=== PATIENT | male | born 1955 | race Caucasian/White ===

== ENCOUNTER → 2018-08-09 | Outpatient (CLI) | payer MEDICARE ==
[~2018-08-09] MED LIST: DOBUTamine DRIP for NUC MED 500 MG in DEXTROSE/WATER 1 250ML.BAG IV ONE
--- NOTE | 2018-08-09 11:13 | ECHOS ---
STRESS ECHOCARDIOGRAM INDICATIONS: Chest pain. BASELINE HEART RATE: 71 BASELINE BLOOD PRESSURE: 153/68 MAXIMUM HEART RATE: 133 MAXIMUM BLOOD PRESSURE: 230/55 85% MPHR: 132 100% MPHR: 155 MAXIMUM STAGE REACHED: 4 TOTAL EXERCISE TIME: 9:15 CLINICAL INFORMATION: Baseline heart rate is 71 beats per minute. Baseline blood pressure 153/68 mmHg. Baseline 12-lead ECG shows sinus rhythm with occasional PVCs. The patient received dobutamine infusion per protocol. Peak heart rate 133 beats per minute. Hypertensive response to dobutamine infusion. Peak blood pressure 230/55 mmHg. There was no ECG evidence for ischemia. Short runs of nonsustained ventricular tachycardia originating from the left ventricle were noted, asymptomatic. The baseline 2D echo image was suboptimal and therefore deferred contrast was used. Baseline 2D echo images showed normal LV size systolic function without segmental wall motion abnormalities. With dobutamine, there was stepwise increment in overall LV contractility without developing any wall motion abnormalities. At recovery, regional global LV systolic function remained normal. IMPRESSION: No ECG or echocardiographic evidence for ischemia, nonsustained ventricular tachycardia from the left ventricle during dobutamine infusion. No sustained ventricular tachycardia. Occasional premature ventricular contractions. MMODL / IJN: [id number] /
== END | disposition home or self-care (01) ==
LOC: RADNMMAIN 09:07
PROVIDERS: ATTEND Family Medicine
DX: I47.2 Ventricular tachycardia (principal)
CPT/HCPCS: C8930; J1250; 93351

== ENCOUNTER 2019-01-09 08:47 | Day surgery (SDC) | payer MEDICARE, BC ==
[2019-01-06 15:41] VITALS: BMI 34.9
[~2019-01-09 08:47] MED LIST changes: -DOBUTamine DRIP for NUC MED 500 MG in DEXTROSE/WATER 1 250ML.BAG IV ONE; +LACTATED RINGERS 1,000 ML IV SCH; +LIDOCAINE 1% 20 ML VIAL (10MG/ML) FOR IV START INTRADERMA PRN
[2019-01-09 09:14] VITALS: TEMP 97.9
[2019-01-09] MEDS ORDERED: KETAMINE 10 MG/ML 20 ML VIAL ONE (10:30)
[2019-01-09] MEDS ORDERED: PROPOFOL 10 MG/ML 20 ML VIAL IV ONE (10:30)
[2019-01-09] MEDS ORDERED: MIDAZOLAM 2 MG/2 ML VIAL ONE (10:30)
--- NOTE | 2019-01-09 11:03 | P.PCN ---
Date of Procedure: 01/09/19 Procedure(s) Performed: Procedure: Colonoscopy and biopsy. Preoperative diagnosis: Blood in the stools. Postoperative diagnosis: 1. Diminutive polyp in the proximal right colon biopsy but no large polyps or tumors. 2. Minimal diverticulosis with no evidence of acute diverticulitis or strictures. Preparation: HalfLytely prep. Sedation: Was provided by anesthesia. Brief clinical history: The patient is a 63-year-old male who is scheduled for this evaluation because of finding of blood in his stools. There is no overt bleeding or change in bowel habits or any significant abdominal symptoms. His last colonoscopy, March 2015 at the time of his upper endoscopy, was normal. His upper endoscopy then showed small sliding hiatal hernia and mild antral gastritis and the biopsies showed mild chronic esophagitis. This evaluation is to rule out neoplasia. Procedure: With the patient on his left lateral decubitus position and after informed consent and adequate sedation, the perianal area was inspected and it did not show any fissures or fistulas. There were no masses felt on digital rectal examination. The Olympus CFH 190L video colonoscope was then inserted in the rectum in the usual fashion and advanced to the cecum. There was a diminutive polyp in the proximal right colon which I biopsied and there was a rare small diverticular orifices seen around the hepatic flexure and in the sigmoid with no evidence of acute diverticulitis or strictures. The mucosa appeared healthy. I retroflexed the endoscope in the rectum before the endoscope was withdrawn. The patient tolerated the procedure well. Plan: The patient was reassured. Discussed dietary measures. He will follow up with you as planned and I recommended repeat exam in 5 years. No additional workup for his blood in the stools is recommended at this time in the absence of upper GI complaints or anemia. He will discuss that with you.
[2019-01-09 11:14] VITALS: BP 130/78; PULSE 78; RESP 18
== END 2019-01-09 11:57 | disposition home or self-care (01) ==
LOC: ORWHC2ENDO 08:47
DX: K63.5 Polyp of colon (principal); K57.30 Diverticulosis of large intestine without perforation or abscess without bleeding; I10 Essential (primary) hypertension; J44.9 Chronic obstructive pulmonary disease, unspecified; K21.9 Gastro-esophageal reflux disease without esophagitis; G47.33 Obstructive sleep apnea (adult) (pediatric); M19.90 Unspecified osteoarthritis, unspecified site; Z79.899 Other long term (current) drug therapy; Z79.51 Long term (current) use of inhaled steroids; Z87.442 Personal history of urinary calculi; Z85.828 Personal history of other malignant neoplasm of skin; Z90.11 Acquired absence of right breast and nipple
CPT/HCPCS: 88305; 45380; J2250; J2704

== ENCOUNTER → 2019-05-02 | Outpatient (CLI) | payer MEDICARE, BC | END | disposition home or self-care (01) | LOC: RADMRIMAIN 12:53 | PROVIDERS: ATTEND Nurse Practitioner Family | DX: Z53.9 Procedure and treatment not carried out, unspecified reason (principal) ==

== ENCOUNTER 2019-05-07 | Inpatient (IN) | payer MEDICARE, BC ==
[2019-05-07 00:18] LABS: Glucose,Whole Blood 142 mg/dL (75-99)
--- NOTE | 2019-05-07 00:54 | ED ---
Dizziness HPI - General Chief Complaint: Dizziness Stated Complaint: light headed Time Seen by Provider: 05/07/19 00:42 Source: patient Mode of arrival: ambulatory - History of Present Illness Complaint: lightheadedness Onset/Timin -: hour(s) Timing: gradual onset Description: "room spinning", lightheadedness History of Same: Yes Severity: mild Improves With: nothing Worsens With: nothing Associated Symptoms: diaphoresis - Related Data Home Medications Medication Instructions Recorded Confirmed Enalapril [Vasotec] 10 mg PO QAM 04/15/15 01/09/19 Sucralfate 1 gm PO BID 07/06/15 01/09/19 Digestive Enzyme 1 tab PO DAILY 04/14/16 01/09/19 Mometasone/Formoterol [Dulera 200 2 puff INHALATION BID PRN 04/14/16 01/09/19 Mcg/5 Mcg Inhaler] Pantoprazole [Protonix] 40 mg PO DAILY 01/06/19 01/09/19 Allergies Allergy/AdvReac Type Severity Reaction Status Date / Time No Known Allergies Allergy Verified 04/20/16 13:02 Review of Systems ROS Statement: Those systems with pertinent positive or pertinent negative responses have been documented in the HPI. ROS Other: All systems not noted in ROS Statement are negative. Constitutional: Denies: fever, chills, weakness Respiratory: Reports: dyspnea. Denies: cough Cardiovascular: Reports: palpitations, syncope (Near syncope). Denies: chest pain, orthopnea, edema Gastrointestinal: Denies: abdominal pain, nausea, vomiting Genitourinary: Denies: dysuria, hematuria Musculoskeletal: Denies: back pain Skin: Denies: rash Neurological: Denies: headache, weakness, numbness, paresthesias Past Medical History Past Medical History: Cancer, GERD/Reflux, Hypertension, Osteoarthritis (OA), Respiratory Disorder, Sleep Apnea/CPAP/BIPAP Additional Past Medical History / Comment(s): Silicosis of Lungs. Hx Ulcers IN ESOPHAGUS, STOMACH. Fatty Liver. Skin CA Back/SHOULDERS/NECK. Kidney stones. NOCTURIA. SLEEP STUDY INCONCLUSIVE D/T CLAUSTROPHOBIA., PT STATES EGD RESCHEDULED BY , DENIES CHANGES TO HEALTH HX OR MEDICATIONS. History of Any Multi-Drug Resistant Organisms: None Reported Past Surgical History: Breast Surgery, Cholecystectomy, Ear Surgery, Tonsillectomy Additional Past Surgical History / Comment(s): EAR SKIN GRAFT. EGD ON 04/19/15. Rt mastectomy, Lt lumpectomy - BENIGN. COLONOSCOPY. Past Anesthesia/Blood Transfusion Reactions: Motion Sickness, Postoperative Nausea & Vomiting (PONV) Additional Past Anesthesia/Blood Transfusion Reaction / Comment(s): Pt SLOW TO AWAKEN. Past Psychological History: Anxiety Smoking Status: Never smoker Past Alcohol Use History: Rare Past Drug Use History: None Reported - Past Family History Father Family Medical History: Myocardial Infarction ([place]) Brother(s) Family Medical History: Cancer Additional Family Medical History / Comment(s): parkinsons Sister(s) Family Medical History: Diabetes Mellitus General Exam General appearance: alert Head exam: Present: atraumatic, normocephalic Eye exam: Present: normal appearance. Absent: scleral icterus, conjunctival injection Respiratory exam: Present: normal lung sounds bilaterally. Absent: respiratory distress, wheezes, rales, rhonchi, stridor Cardiovascular Exam: Present: regular rate, normal rhythm, normal heart sounds. Absent: systolic murmur, diastolic murmur, rubs, gallop GI/Abdominal exam: Present: soft. Absent: distended, tenderness, guarding, rebound, rigid Extremities exam: Present: normal inspection, normal capillary refill. Absent: pedal edema, calf tenderness Back exam: Present: normal inspection. Absent: CVA tenderness (R), CVA tenderness (L) Neurological exam: Present: alert Skin exam: Present: warm, dry, intact, normal color. Absent: rash Course Vital Signs 05/07/19 05/07/19 05/07/19 00:06 01:42 02:28 Pulse Rate 94 81 82 Respiratory 18 16 18 Rate Blood Pressure 103/58 117/67 118/62 O2 Sat by Pulse 98 98 97 Oximetry EKG Findings - EKG Results: EKG: interpreted by ERMD, sinus rhythm (Rate 92 bpm), normal ST/T - Blocks, [place], Hypertrophy, ST Abn: AV and intraventricular conduction: left anterior fascicular block Chamber hypertrophy or enlargement: only voltage criteria for left ventricular hypertrophy Medical Decision Making - Lab Data Result diagrams: 05/07/19 00:47 05/07/19 00:47 Lab Results 05/07/19 05/07/19 05/07/19 Range/Units 00:15 00:47 00:47 WBC 15.7 H (3.8-10.6) k/uL RBC 4.81 (4.30-5.90) m/uL Hgb 14.4 (13.0-17.5) gm/dL Hct 41.8 (39.0-53.0) % MCV 87.0 (80.0-100.0) fL MCH 30.0 (25.0-35.0) pg MCHC 34.5 (31.0-37.0) g/dL RDW 13.7 (11.5-15.5) % Plt Count 305 (150-450) k/uL Neutrophils % 77 % Lymphocytes % 13 % Monocytes % 8 % Eosinophils % 1 % Basophils % 0 % Neutrophils # 12.0 H (1.3-7.7) k/uL Lymphocytes # 2.0 (1.0-4.8) k/uL Monocytes # 1.2 H (0-1.0) k/uL Eosinophils # 0.1 (0-0.7) k/uL Basophils # 0.1 (0-0.2) k/uL Sodium 138 (137-145) mmol/L Potassium 4.4 (3.5-5.1) mmol/L Chloride 101 (98-107) mmol/L Carbon Dioxide 23 (22-30) mmol/L Anion Gap 14 mmol/L BUN 41 H (9-20) mg/dL Creatinine 2.54 H (0.66-1.25) mg/dL Est GFR (CKD-EPI)AfAm 29 (>60 ml/min/1.73 sqM) Est GFR (CKD-EPI)NonAf 26 (>60 ml/min/1.73 sqM) Glucose 132 H (74-99) mg/dL POC Glucose (mg/dL) 142 H (75-99) mg/dL POC Glu Payroll Secretary ID Home, [place] Plasma Lactic Acid Adi (0.7-2.0) mmol/L Calcium 10.3 H (8.4-10.2) mg/dL Total Bilirubin 0.6 (0.2-1.3) mg/dL AST 23 (17-59) U/L ALT 21 (21-72) U/L Alkaline Phosphatase 104 (38-126) U/L Troponin I (0.000-0.034) ng/mL Total Protein 7.9 (6.3-8.2) g/dL Albumin 4.6 (3.5-5.0) g/dL Urine Color Urine Appearance (Clear) Urine pH (5.0-8.0) Ur Specific [place] (1.001-1.035) Urine Protein (Negative) Urine Glucose (UA) (Negative) Urine Ketones (Negative) Urine Blood (Negative) Urine Nitrite (Negative) Urine Bilirubin (Negative) Urine Urobilinogen (<2.0) mg/dL Ur Leukocyte Esterase (Negative) Urine RBC (0-5) /hpf Ur Squamous Epith Cells (0-4) /hpf Hyaline Casts (0-2) /lpf Urine Mucus (None) /hpf 05/07/19 05/07/19 05/07/19 Range/Units 00:47 00:47 02:10 WBC (3.8-10.6) k/uL RBC (4.30-5.90) m/uL Hgb (13.0-17.5) gm/dL Hct (39.0-53.0) % MCV (80.0-100.0) fL MCH (25.0-35.0) pg MCHC (31.0-37.0) g/dL RDW (11.5-15.5) % Plt Count (150-450) k/uL Neutrophils % % Lymphocytes % % Monocytes % % Eosinophils % % Basophils % % Neutrophils # (1.3-7.7) k/uL Lymphocytes # (1.0-4.8) k/uL Monocytes # (0-1.0) k/uL Eosinophils # (0-0.7) k/uL Basophils # (0-0.2) k/uL Sodium (137-145) mmol/L Potassium (3.5-5.1) mmol/L Chloride (98-107) mmol/L Carbon Dioxide (22-30) mmol/L Anion Gap mmol/L BUN (9-20) mg/dL Creatinine (0.66-1.25) mg/dL Est GFR (CKD-EPI)AfAm (>60 ml/min/1.73 sqM) Est GFR (CKD-EPI)NonAf (>60 ml/min/1.73 sqM) Glucose (74-99) mg/dL POC Glucose (mg/dL) (75-99) mg/dL POC Glu Payroll Secretary ID Plasma Lactic Acid Adi 2.1 H* (0.7-2.0) mmol/L Calcium (8.4-10.2) mg/dL Total Bilirubin (0.2-1.3) mg/dL AST (17-59) U/L ALT (21-72) U/L Alkaline Phosphatase (38-126) U/L Troponin I <0.012 (0.000-0.034) ng/mL Total Protein (6.3-8.2) g/dL Albumin (3.5-5.0) g/dL Urine Color Yellow Urine Appearance Cloudy (Clear) Urine pH 5.5 (5.0-8.0) Ur Specific [place] 1.016 (1.001-1.035) Urine Protein 1+ H (Negative) Urine Glucose (UA) Negative (Negative) Urine Ketones Negative (Negative) Urine Blood Negative (Negative) Urine Nitrite Negative (Negative) Urine Bilirubin Negative (Negative) Urine Urobilinogen 2.0 (<2.0) mg/dL Ur Leukocyte Esterase Trace H (Negative) Urine RBC 1 (0-5) /hpf Ur Squamous Epith Cells 2 (0-4) /hpf Hyaline Casts 59 H (0-2) /lpf Urine Mucus Moderate H (None) /hpf Disposition Clinical Impression: Near syncope, Acute kidney injury Disposition: ADMITTED IP TO THIS HOSP Condition: Fair Is patient prescribed a controlled substance at d/c from ED?: No Referrals: Lionel Wagner MD [Primary Care Provider] - 1-2 days
[2019-05-07 00:59] LABS: Basophils # (A) 0.1 k/uL (0-0.2); Basophils % (A) 0 %; Eosinophils # (A) 0.1 k/uL (0-0.7); Eosinophils % (A) 1 %; HCT 41.8 % (39.0-53.0); HGB 14.4 gm/dL (13.0-17.5); Lymphocytes % (A) 13 %; MCHC 34.5 g/dL (31.0-37.0); Mean Platelet Volume 8.3; Monocytes # (A) 1.2 k/uL (0-1.0); Monocytes % (A) 8 %; Neutrophils % (A) 77 %; Platelet Count 305 k/uL (150-450); RBC 4.81 m/uL (4.30-5.90); RDW 13.7 % (11.5-15.5); WBC 15.7 k/uL (3.8-10.6)
[2019-05-07 01:08] LABS: Albumin 4.6 g/dL (3.5-5.0); Calcium 10.3 mg/dL (8.4-10.2); Potassium 4.4 mmol/L (3.5-5.1); Total Bilirubin 0.6 mg/dL (0.2-1.3); Total Protein 7.9 g/dL (6.3-8.2)
[2019-05-07] MEDS ORDERED: SODIUM CHLORIDE 0.9% 1,000 ML IV ONE (01:13)
--- NOTE | 2019-05-07 01:24 | XR ---
EXAM: XR Chest, 1 View CLINICAL HISTORY: ITS.REASON XR Reason: lightheadedness TECHNIQUE: Frontal view of the chest. COMPARISON: 02/21/19 and 07/05/15. FINDINGS: Lungs: There is redemonstrated pulmonary hyperinflation suggesting emphysema. Chronic upper lobe-predominant reticulonodular infiltrates again noted, similar to prior exam back to 2014. No clear acute consolidation Pleural space: Unremarkable. No pneumothorax. Heart: Unremarkable. No cardiomegaly. Mediastinum: Aortic calcification. Bones/joints: Unremarkable. IMPRESSION: Redemonstrated pulmonary hyperexpansion and chronic reticulonodular infiltrates. No clear acute consolidation.
[2019-05-07 02:30] LABS: Appearance,Urine Cloudy (Clear); Bilirubin,Urine Negative (Negative); Blood,Urine Negative (Negative); Color,Urine Yellow; Glucose,Urine (UA) Negative (Negative); Hyaline Casts,Urine 59 /lpf (0-2); Ketones,Urine Negative (Negative); Leukocyte Esterase,Urine Trace (Negative); Mucus,Urine Moderate /hpf; Nitrite,Urine Negative (Negative); PH, Urine 5.5 (5.0-8.0); Protein,Urine 1+ (Negative); RBC,Urine 1 /hpf (0-5); Specific Gravity,Urine 1.016 (1.001-1.035); Squamous Epithelial Cell,Urine 2 /hpf (0-4)
[2019-05-07] MEDS ORDERED: NALOXONE 0.4 MG/ML 1 ML VIAL IV PRN (02:47)
[2019-05-07] MEDS ORDERED: SODIUM CHLORIDE 0.9% 1,100 ML IV ONE (02:49)
[2019-05-07] MEDS ORDERED: MAG HYDROX/AL HYDROX/SIMETH 30 ML CUP PO STA (03:46)
[2019-05-07] MEDS: SODIUM CHLORIDE 0.9% 1,000 ML IV SCH ×2 (04:28→16:20)
[2019-05-07] MEDS ORDERED: SUCRALFATE 1 GM TAB PO SCH (09:00)
[2019-05-07] MEDS ORDERED: LISINOPRIL 20 MG TAB PO SCH (09:00)
[2019-05-07] MEDS: PANTOPRAZOLE 40 MG TABLET PO SCH (09:12)
[2019-05-07] MEDS ORDERED: TAMSULOSIN 0.4 MG CAP.ER.24H PO SCH (10:45)
[2019-05-07] MEDS ORDERED: hydrALAZINE HCL 20 MG/ML 1 ML VIAL IVP PRN (10:47)
--- NOTE | 2019-05-07 11:21 | P.NPCON ---
History of Present Illness - Reason for Consult acute renal failure - History of Present Illness Reason for consultation: Acute kidney injury History of present illness: Patient is a 63-year-old male seen in consultation for acute kidney injury. Patient's creatinine in 2014 was 0.8. No other records are available. Patient denies any prior history of kidney disease and he does not follow with a nephro logist outpatient. Patient states he felt dizzy yesterday which progressively got worse over the day. Patient states he was unable to even stand and decided to come to the hospital. Patient was noted to be hypotensive with blood pressure in the low 100s on admission. He does take diuretics and lisinopril at home. Additionally he admits to taking Aleve on a daily basis in the morning. He admits to good urine output. No hematuria or dysuria. No history of diabetes. Denies family history of renal disease. No vomiting or diarrhea. Oral intake has been fair. Denies chest pain or shortness of breath. He denies losing consciousness. Vital signs are stable. General: The patient appeared well nourished and normally developed. HEENT: Head exam is unremarkable. Neck is without jugular venous distension. LUNGS: Lungs are clear to auscultation and percussion. Breath sounds decreased. HEART: Rate and Rhythm are regular. First and second heart sounds normal. No murmurs, rubs or gallops. ABDOMEN: Abdominal exam reveals normal bowel sounds. Non-tender and non- distended. No evidence of peritonitis. EXTREMITITES: No clubbing, cyanosis, or edema. Past Medical History Past Medical History: Cancer, GERD/Reflux, Hypertension, Osteoarthritis (OA), Respiratory Disorder, Sleep Apnea/CPAP/BIPAP Additional Past Medical History / Comment(s): Silicosis of Lungs. Hx Ulcers IN ESOPHAGUS, STOMACH. Fatty Liver. Skin CA Back/SHOULDERS/NECK. Kidney stones. NOCTURIA. SLEEP STUDY INCONCLUSIVE D/T CLAUSTROPHOBIA., PT STATES EGD RESCHEDULED BY DR, DENIES CHANGES TO HEALTH HX OR MEDICATIONS. History of Any Multi-Drug Resistant Organisms: None Reported Past Surgical History: Breast Surgery, Cholecystectomy, Ear Surgery, Tonsillectomy Additional Past Surgical History / Comment(s): EAR SKIN GRAFT. EGD ON 04/19/15. Rt mastectomy, Lt lumpectomy - BENIGN. COLONOSCOPY. Past Anesthesia/Blood Transfusion Reactions: Motion Sickness, Postoperative Nausea & Vomiting (PONV) Additional Past Anesthesia/Blood Transfusion Reaction / Comment(s): Pt SLOW TO AWAKEN. Past Psychological History: Anxiety Additional Psychological History / Comment(s): CLAUSTROPHOBIC Smoking Status: Never smoker Past Alcohol Use History: Rare Past Drug Use History: None Reported - Past Family History Father Family Medical History: Myocardial Infarction ([place]) Brother(s) Family Medical History: Cancer Additional Family Medical History / Comment(s): parkinsons Sister(s) Family Medical History: Diabetes Mellitus Medications and Allergies Home Medications Medication Instructions Recorded Confirmed Type Sucralfate 1 gm PO QID 07/06/15 05/07/19 History Digestive Enzyme 1 tab PO DAILY 04/14/16 05/07/19 History Mometasone/Formoterol [Dulera 200 2 puff INHALATION RT-BID PRN 04/14/16 05/07/19 History Mcg/5 Mcg Inhaler] Pantoprazole [Protonix] 40 mg PO DAILY 01/06/19 05/07/19 History Albuterol Sulfate [Proair Hfa] 1 - 2 puff INHALATION RT-Q4H PRN 05/07/19 05/07/19 History Enalapril [Vasotec] 20 mg PO DAILY 05/07/19 05/07/19 History Ibuprofen [Motrin] 800 mg PO TID PRN 05/07/19 05/07/19 History Tamsulosin [Flomax] 0.8 mg PO DAILY 05/07/19 05/07/19 History Triamterene/Hydrochlorothiazid 1 tab PO DAILY 05/07/19 05/07/19 History [Triamterene-Hctz 37.5-25 mg Tb] Allergies Allergy/AdvReac Type Severity Reaction Status Date / Time No Known Allergies Allergy Verified 05/07/19 07:20 Physical Exam Vitals: Vital Signs Temp Pulse Pulse Pulse Resp BP BP 05/07/19 07:35 98.5 F 78 16 108/51 05/07/19 07:15 16 05/07/19 06:55 97.8 F 82 21 05/07/19 03:30 98 F 76 18 113/68 05/07/19 02:28 82 18 118/62 05/07/19 01:42 81 16 117/67 05/07/19 00:06 94 18 103/58 BP Pulse Ox 05/07/19 07:35 95 05/07/19 07:15 05/07/19 06:55 111/64 95 05/07/19 03:30 96 05/07/19 02:28 97 05/07/19 01:42 98 05/07/19 00:06 98 Intake and Output 05/06/19 05/07/19 05/07/19 22:59 06:59 14:59 Intake Total 10 300 Balance 10 300 Intake: Oral 10 300 Other: Weight 104.78 kg Results - Lab Results Most recent lab results Calcium 10.3 mg/dL (8.4-10.2) H 05/07/19 00:47 05/07/19 00:47 05/07/19 00:47 Assessment and Plan Plan: Assessment: 1. Acute kidney injury mostly prerenal secondary to hypotension, nonsteroidals and diuretics. Creatinine 2.54 on admission. Creatinine was 0.8 and 2015. 2. Lactic acidosis secondary to hypotension improved with IV hydration. Patient received 2 L normal saline bolus in the ER. 3. Benign hypertension. Controlled. 4. Near syncopal episode secondary to intravascular volume depletion. 5. Pyuria. Follow-up urine culture. Plan: Maintain normal saline at 75 mL an hour. Check orthostatic vital signs. Hold all antihypertensives. Check renal ultrasound. Repeat electrolytes in the morning. Thank you for the consultation. I will continue to follow the patient with you during his hospital stay.
[2019-05-07] MEDS ORDERED: ACETAMINOPHEN TAB 325 MG TAB PO PRN (13:28)
--- NOTE | 2019-05-07 14:49 | US ---
EXAMINATION TYPE: US kidneys/renal and bladder DATE OF EXAM: 05/07/2019 COMPARISON: NONE CLINICAL HISTORY: phi. Dehydration PHI EXAM MEASUREMENTS: Right Kidney: 13.5 x 6.2 x 4.9 cm Left Kidney: 12.1 x 5.8 x 5.1 cm Right Kidney: No hydronephrosis or masses seen Left Kidney: No hydronephrosis or masses seen Bladder: Anechoic Bilateral Jets seen: Yes IMPRESSION: 1. Normal renal ultrasound
--- NOTE | 2019-05-07 16:15 | P.HPIM ---
History of Present Illness H&P Date: 05/07/19 Chief Complaint: Disease lightheaded History of presenting complaint: This is a pleasant 63-year-old patient of Dr. Lionel Wagner. Chronic stable medical conditions include GERD, hypertension, osteoarthritis, silicosis of the lung, fatty liver, kidney stone, and history of ulcer in the stomach and esophagus. Patient presents with multitudinous symptoms including dizzy per spiration lightheaded. Started yesterday. Had another bout of heavy's perspiration yesterday. No chest pain slight headache. Had 2 loose bowel movements yesterday that was loose no obvious fever and chills. Does tired and rundown. Review of systems: GEN.: Tired, perspiring, lightheaded EYES: None HEENT: Slight frontal headache NECK: None RESPIRATORY: None CARDIOVASCULAR: None GASTROINTESTINAL: No abdominal pain GENITOURINARY: None MUSCULOSKELETAL: None LYMPHATICS: None HEMATOLOGICAL: None PSYCHIATRY: None NEUROLOGICAL: None Social history: Does not smoke. Alcohol rarely. Currently on disability. Used to work in [employer]. . Physical examination: VITAL SIGNS: Afebrile, 94, 18, 103/58, 98% room air GENERAL: BMI 35.1, sitting at the edge of the bed, tired appearing slight perspiration. EYES: Pupils equal. Conjunctiva normal. HEENT: External appearance of nose and ears normal, oral cavity grossly normal. NECK: JVD not raised; masses not palpable. HEART: First and second heart sounds are normal; no edema. LUNGS: Respiratory rate normal; clear to auscultation. ABDOMEN: Soft, nontender, liver spleen not palpable, no masses palpable. PSYCH: Alert and oriented x3; mood and affect normal. NEUROLOGICAL: Cranial nerves grossly intact; no facial asymmetry, power and sensation grossly intact. LYMPHATICS: No lymph nodes palpable in the axilla and neck Investigations: White count 15.7 hemoglobin 40.4 potassium 4.4 bun 41 creatinine 2.54 lactic a tianna 2.1 EKG tracing personally reviewed by me shows normal sinus rhythm Chest x-ray film personally reviewed by me the film is rather underpenetrated. X-ray report reads pulmonary hyperexpansion and chronic medical nodular infiltrates Assessment: -This is a patient presents with episodes/symptoms, biting of dizzy lightheaded perspiration weak tired slight headache. No fever no chills. This could be from his underlying renal failure that could be acute -Possibly acute renal failure, type unknown. Renal offensive medications: Include patient being on Motrin, Vasotec and diuretics. That could be combination of ATN and prerenal. -Obesity BMI 35.1 -GERD -Essential hypertension -Primary osteoarthritis -Operative sleep apnea -Silicosis of the lungs -Fatty liver -Nephrolithiasis Plan: Renal offensive medications including diuretics and ISABELLE inhibitor NSAIDs will all be discontinued. Patient will get IV fluids. Renal ultrasound will be done. Nephrology was consulted. Care was discussed with the patient. Lovenox for DVT Profore prophylaxis. Past Medical History Past Medical History: Cancer, GERD/Reflux, Hypertension, Osteoarthritis (OA), Respiratory Disorder, Sleep Apnea/CPAP/BIPAP Additional Past Medical History / Comment(s): Silicosis of Lungs. Hx Ulcers IN ESOPHAGUS, STOMACH. Fatty Liver. Skin CA Back/SHOULDERS/NECK. Kidney stones. NOCTURIA. SLEEP STUDY INCONCLUSIVE D/T CLAUSTROPHOBIA., PT STATES EGD R ESCHEDULED BY , DENIES CHANGES TO HEALTH HX OR MEDICATIONS. History of Any Multi-Drug Resistant Organisms: None Reported Past Surgical History: Breast Surgery, Cholecystectomy, Ear Surgery, Tonsillectomy Additional Past Surgical History / Comment(s): EAR SKIN GRAFT. EGD ON 04/19/15. Rt mastectomy, Lt lumpectomy - BENIGN. COLONOSCOPY. Past Anesthesia/Blood Transfusion Reactions: Motion Sickness, Postoperative Nausea & Vomiting (PONV) Additional Past Anesthesia/Blood Transfusion Reaction / Comment(s): Pt SLOW TO AWAKEN. Past Psychological History: Anxiety Additional Psychological History / Comment(s): CLAUSTROPHOBIC Smoking Status: Never smoker Past Alcohol Use History: Rare Past Drug Use History: None Reported - Past Family History Father Family Medical History: Myocardial Infarction (SD) Brother(s) Family Medical History: Cancer Additional Family Medical History / Comment(s): parkinsons Sister(s) Family Medical History: Diabetes Mellitus Medications and Allergies Home Medications Medication Instructions Recorded Confirmed Type Sucralfate 1 gm PO QID 07/06/15 05/07/19 History Digestive Enzyme 1 tab PO DAILY 04/14/16 05/07/19 History Mometasone/Formoterol [Dulera 200 2 puff INHALATION RT-BID PRN 04/14/16 05/07/19 History Mcg/5 Mcg Inhaler] Pantoprazole [Protonix] 40 mg PO DAILY 01/06/19 05/07/19 History Albuterol Sulfate [Proair Hfa] 1 - 2 puff INHALATION RT-Q4H PRN 05/07/19 05/07/19 History Enalapril [Vasotec] 20 mg PO DAILY 05/07/19 05/07/19 History Ibuprofen [Motrin] 800 mg PO TID PRN 05/07/19 05/07/19 History Tamsulosin [Flomax] 0.8 mg PO DAILY 05/07/19 05/07/19 History Triamterene/Hydrochlorothiazid 1 tab PO DAILY 05/07/19 05/07/19 History [Triamterene-Hctz 37.5-25 mg Tb] Allergies Allergy/AdvReac Type Severity Reaction Status Date / Time No Known Allergies Allergy Verified 05/07/19 07:20 Physical Exam Vitals: Vital Signs Temp Pulse Pulse Pulse Resp BP BP 05/07/19 15:03 97.9 F 79 16 131/71 05/07/19 11:09 66 82 21 05/07/19 07:35 98.5 F 78 16 108/51 05/07/19 07:15 16 05/07/19 06:55 97.8 F 82 21 05/07/19 03:30 98 F 76 18 113/68 05/07/19 02:28 82 18 118/62 05/07/19 01:42 81 16 117/67 05/07/19 00:06 94 18 103/58 BP Pulse Ox 05/07/19 15:03 95 05/07/19 11:09 05/07/19 07:35 95 05/07/19 07:15 05/07/19 06:55 111/64 95 05/07/19 03:30 96 05/07/19 02:28 97 05/07/19 01:42 98 05/07/19 00:06 98 Intake and Output 05/07/19 05/07/19 05/07/19 06:59 14:59 22:59 Intake Total 10 1425 Balance 10 1425 Intake: Intake, IV Titration 525 Amount Sodium Chloride 0.9% 1, 525 000 ml @ 75 mls/hr IV . [id number] [facility] Rx#:[id number] Oral 10 900 Other: Voiding Method Toilet # Voids 2 Weight 104.78 kg Results CBC & Chem 7: 05/07/19 00:47 05/07/19 00:47 Labs: Abnormal Lab Results - Last 24 Hours (Table) 05/07/19 05/07/19 05/07/19 Range/Units 00:15 00:47 00:47 WBC 15.7 H (3.8-10.6) k/uL Neutrophils # 12.0 H (1.3-7.7) k/uL Monocytes # 1.2 H (0-1.0) k/uL BUN 41 H (9-20) mg/dL Creatinine 2.54 H (0.66-1.25) mg/dL Glucose 132 H (74-99) mg/dL POC Glucose (mg/dL) 142 H (75-99) mg/dL Plasma Lactic Acid Adi (0.7-2.0) mmol/L Calcium 10.3 H (8.4-10.2) mg/dL Urine Protein (Negative) Ur Leukocyte Esterase (Negative) Urine WBC (0-5) /hpf Hyaline Casts (0-2) /lpf Urine Mucus (None) /hpf 05/07/19 05/07/19 Range/Units 00:47 02:10 WBC (3.8-10.6) k/uL Neutrophils # (1.3-7.7) k/uL Monocytes # (0-1.0) k/uL BUN (9-20) mg/dL Creatinine (0.66-1.25) mg/dL Glucose (74-99) mg/dL POC Glucose (mg/dL) (75-99) mg/dL Plasma Lactic Acid Adi 2.1 H* (0.7-2.0) mmol/L Calcium (8.4-10.2) mg/dL Urine Protein 1+ H (Negative) Ur Leukocyte Esterase Trace H (Negative) Urine WBC 13 H (0-5) /hpf Hyaline Casts 59 H (0-2) /lpf Urine Mucus Moderate H (None) /hpf Microbiology - Last 24 Hours (Table) 05/07/19 02:10 Urine Culture - Preliminary Urine,Voided Thrombosis Risk Factor Assmnt - Choose All That Apply Any of the Below Risk Factors Present?: Yes Each Factor Represents 1 point: Obesity (BMI >25) Other Risk Factors: Yes Each Risk Factor Represents 2 Points: Age 61-74 years Thrombosis Risk Factor Assessment Total Risk Factor Score: 3 Thrombosis Risk Factor Assessment Level: Moderate Risk
[2019-05-07] MEDS: SODIUM CHLORIDE 0.45% 1,000 ML IV SCH (16:24)
[2019-05-07] MEDS: ENOXAPARIN 40 MG/0.4 ML SYRINGE SQ SCH (16:25)
[2019-05-07] MEDS: SYMBICORT 160-4.5 MCG INHALER INHALATION PRN (19:56)
[2019-05-08] MEDS: SODIUM CHLORIDE 0.45% 1,000 ML IV SCH ×2 (01:29→07:35)
[2019-05-08] MEDS: SYMBICORT 160-4.5 MCG INHALER INHALATION PRN (07:16)
[2019-05-08 07:25] LABS: Calcium 9.4 mg/dL (8.4-10.2); Magnesium 1.7 mg/dL (1.6-2.3); Potassium 4.3 mmol/L (3.5-5.1)
[2019-05-08] MEDS: PANTOPRAZOLE 40 MG TABLET PO SCH (07:37)
[2019-05-08] MEDS: ENOXAPARIN 40 MG/0.4 ML SYRINGE SQ SCH (07:37)
[2019-05-08 07:41] VITALS: BP 170/70; PULSE 74; RESP 17; TEMP 98.1
[2019-05-08] MEDS ORDERED: TAMSULOSIN 0.4 MG CAP.ER.24H PO SCH (08:30)
--- NOTE | 2019-05-08 10:09 | P.PN ---
Subjective Patient is seen in follow-up for acute kidney injury. Creatinine was 2.54 on admission and is 1.09 today. Oral intake is good. Hypotension has resolved. Blood pressures are actually on the higher side this morning. No nausea or vomiting. Vital signs are stable. General: The patient appeared well nourished and normally developed. HEENT: Head exam is unremarkable. Neck is without jugular venous distension. LUNGS: Lungs are clear to auscultation and percussion. Breath sounds decreased. HEART: Rate and Rhythm are regular. First and second heart sounds normal. No murmurs, rubs or gallops. ABDOMEN: Abdominal exam reveals normal bowel sounds. Non-tender and non- distended. No evidence of peritonitis. EXTREMITITES: No clubbing, cyanosis, or edema. Objective - Vital Signs Vital signs: Vital Signs Temp 98.1 F 05/08/19 07:00 Pulse 74 05/08/19 07:00 Resp 17 05/08/19 07:00 BP 170/70 05/08/19 07:00 Pulse Ox 96 05/08/19 07:18 Intake & Output 05/07/19 05/08/19 05/08/19 18:59 06:59 18:59 Intake Total 1725 1125 180 Balance 1725 1125 180 Intake: Intake, IV Titration 525 1125 Amount Sodium Chloride 0.45% 1, 1125 000 ml @ 125 mls/hr IV . Q8H [facility] Rx#:[id number] Sodium Chloride 0.9% 1, 525 000 ml @ 75 mls/hr IV . [id number] [facility] Rx#:[id number] Oral 1200 180 Other: Voiding Method Toilet # Voids 2 1 - Labs CBC & Chem 7: 05/07/19 00:47 05/08/19 06:38 Labs: Abnormal Lab Results - Last 24 Hours (Table) 05/08/19 Range/Units 06:38 BUN 21 H (9-20) mg/dL Microbiology - Last 24 Hours (Table) 05/07/19 02:10 Urine Culture - Preliminary Urine,Voided Assessment and Plan Plan: Assessment: 1. Acute kidney injury mostly prerenal secondary to hypotension, nonsteroidals and diuretics. Creatinine 2.54 on admission and is down to 1.09 today. Creatinine was 0.8 and 2015. 2. Lactic acidosis secondary to hypotension improved with IV hydration. Patient received 2 L normal saline bolus in the ER. 3. Benign hypertension. Blood pressure high this morning. 4. Near syncopal episode secondary to intravascular volume depletion. 5. Pyuria. Follow-up urine culture. Plan: Hep-Lock IV fluids. Start amlodipine 5 mg once daily.
[2019-05-08] MEDS ORDERED: amLODIPine 5 MG TAB PO SCH (10:15)
== END 2019-05-08 13:27 | disposition home or self-care (01) | DRG 683 ==
LOC: EC → 4SSUR 02:47
PROVIDERS: ADMIT Hospitalist; ATTEND Hospitalist
DX: N17.9 Acute kidney failure, unspecified (principal); E87.2 Acidosis; I95.9 Hypotension, unspecified; K76.0 Fatty (change of) liver, not elsewhere classified; E66.9 Obesity, unspecified; E86.9 Volume depletion, unspecified; F40.240 Claustrophobia; G47.33 Obstructive sleep apnea (adult) (pediatric); I10 Essential (primary) hypertension; K21.9 Gastro-esophageal reflux disease without esophagitis; M19.91 Primary osteoarthritis, unspecified site; R55 Syncope and collapse; F41.9 Anxiety disorder, unspecified; J62.8 Pneumoconiosis due to other dust containing silica; T39.315A Adverse effect of propionic acid derivatives, initial encounter; T46.4X5A Adverse effect of angiotensin-converting-enzyme inhibitors, initial encounter; T50.2X5A Adverse effect of carbonic-anhydrase inhibitors, benzothiadiazides and other diuretics, initial encounter; Z68.35 Body mass index [BMI] 35.0-35.9, adult; Z79.51 Long term (current) use of inhaled steroids; Z79.899 Other long term (current) drug therapy; Z90.11 Acquired absence of right breast and nipple; Z90.49 Acquired absence of other specified parts of digestive tract; Z87.442 Personal history of urinary calculi; Z87.11 Personal history of peptic ulcer disease; Z87.19 Personal history of other diseases of the digestive system; Z85.828 Personal history of other malignant neoplasm of skin; Z82.0 Family history of epilepsy and other diseases of the nervous system; Z82.49 Family history of ischemic heart disease and other diseases of the circulatory system; Z83.3 Family history of diabetes mellitus; Z80.9 Family history of malignant neoplasm, unspecified
CPT/HCPCS: 36415; 71045; 76770; 80048; 80053; 81001; 83605; 83735; 84484; 85025; 87086; 93005; 94640; 94760; 96360; 99285

== ENCOUNTER → 2020-06-22 | Outpatient (CLI) | payer MEDICARE, BC ==
[2020-06-22 16:55] LABS: African American GFR (CKD) >90 (>60 ml/min/1.73 sqM); Blood Urea Nitrogen 16 mg/dL (9-20); Non-African American GFR(CKD) 89 (>60 ml/min/1.73 sqM)
--- NOTE | 2020-06-23 12:26 | CT ---
EXAMINATION TYPE: CT chest w con DATE OF EXAM: 06/22/2020 COMPARISON: CT from outside institution dated 06/20/2019, 01/23/2019 HISTORY: Abnormal finding of lung field. PT c/o RT side pain that radiates from mid rib across to his stomach CT DLP: 598.6 mGycm Automated exposure control for dose reduction was used. CONTRAST: CT scan of the chest is performed with IV Contrast, patient injected with 100 mL of Isovue 300. FINDINGS: LUNGS: The lungs show similar pleural parenchymal soft tissue nodularity and confluent densities as o n prior exams. There are calcified lung nodules also present as on priors. There is no pleural effus ion or pneumothorax seen. The tracheobronchial tree is patent. MEDIASTINUM: There are similar changes of hilar adenopathy as on prior.. No pericardial effusion is seen. There are coronary artery calcifications. AORTA: No additional significant abnormality is seen. OTHER: The liver shows low attenuation possibly due to hepatic steatosis. Patient is post cholecyste ctomy.. IMPRESSION: Similar to prior exam. Findings may represent sequela of old granulomatous disease. Poss ible hepatic steatosis.
== END | disposition home or self-care (01) ==
LOC: RADCTMAIN 15:55
DX: R91.8 Other nonspecific abnormal finding of lung field (principal)
CPT/HCPCS: 82565; 84520; 71260; 36415; Q9967

== ENCOUNTER → 2020-11-03 | Outpatient (CLI) | payer MEDICARE, BC ==
[~2020-11-03] MED LIST changes: +DOBUTamine DRIP for NUC MED 500 MG in DEXTROSE/WATER 1 250ML.BAG IV ONE; -LACTATED RINGERS 1,000 ML IV SCH; -LIDOCAINE 1% 20 ML VIAL (10MG/ML) FOR IV START INTRADERMA PRN; +METOPROLOL TARTRATE 5 MG/5 ML VIAL IVP ONE
--- NOTE | 2020-11-04 11:36 | ECHOS ---
STRESS ECHOCARDIOGRAM LUMASON: Vial INDICATIONS: Chest pain. MEDICATIONS: BASELINE HEART RATE: 68 BASELINE BLOOD PRESSURE: 148/70 MAXIMUM HEART RATE: 159 MAXIMUM BLOOD PRESSURE: 172/65 85% MPHR: 130 100% MPHR: 153 METS: MAXIMUM STAGE REACHED: TOTAL EXERCISE TIME: CLINICAL INFORMATION: STRESS DATA: Heart rate 68, pressure is 148/70 mmHg. Baseline EKG showed sinus mechanism. . Max heart rate was 159 beats per minute and maximum pressure was 172/65 mmHg. The dobutamine was infused about 40 mcg/kg per minute. With dobutamine, the patient achieved a max heart rate of 159, which is about 104% of maximum predicted heart rate. Clinically the patient did not have any symptoms of chest pain or chest discomfort during the testing or on recovery. The EKG did not show any significant ST or T-wave abnormalities, but the patient did have multiple PVCs in term of couplet and triplet as well as multiple runs of nonsustained ventricular tachycardia noted. ANALYSIS: On echocardiogram images from parasternal long axis view, parasternal short axis view, apical 4 chamber and apical 2 chamber were obtained as the baseline images, at low dose dobutamine infusion, at peak heart rate, as well as on recovery. The echocardiogram images showed good augmentation in the left ventricular systolic function without any evidence of wall motion abnormalities concerning for ischemia. CONCLUSION: 1. Arrhythmia in response to dobutamine in term of PVCs as well as short runs of nonsustained ventricular tachycardia. 2. Normal echocardiogram in response to dobutamine. MMODL / IJN: [id number] /
== END | disposition home or self-care (01) ==
LOC: RADNMMAIN 09:45
PROVIDERS: ATTEND Family Medicine
DX: I49.3 Ventricular premature depolarization (principal); I47.2 Ventricular tachycardia; I25.10 Atherosclerotic heart disease of native coronary artery without angina pectoris
CPT/HCPCS: C8930; J1250; Q9950; 93351

== ENCOUNTER → 2023-05-18 | Outpatient (CLI) | payer MEDICARE, BC ==
--- NOTE | 2023-05-18 15:50 | CT ---
EXAMINATION TYPE: CT iac wo con DATE OF EXAM: 05/18/2023 COMPARISON: None HISTORY: 67-year-old male H90.A31 MIX CNDCT/SNRL HEAR LOSS, UNI, R EAR, Rt side hearing loss. TECHNIQUE: Contiguous axial scanning of the temporal bones without IV contrast. Coronal reconstructio ns performed. CT DLP: 150.0 mGycm Automated exposure control for dose reduction was used. FINDINGS: Atherosclerotic calcifications within the carotid siphons. Otherwise, no gross abnormality of visuali zed intracranial structures. The skull base appears normal. The external auditory canals are clear. Very slight thickening of the anterior margin of the right ty mpanic membrane. There is a small amount of fluid within the inferior right mastoid air cells. Otherwise, the bilatera l mastoid air cells and middle ear cavities are well pneumatized. There is no abnormality of middle ear ossicles. The round and oval windows are normal. There is no abnormality of bony labyrinths. The vestibular and cochlear aqueducts are well visualized. The facial nerve canal is normal bilaterally. The internal auditory canal and meati are symmetrical bilaterally. There is no evidence of fractures. Moderate mucosal thickening throughout the ethmoid air cells. Rightward nasal septal deviation. 9 mm mucosal retention cyst right sphenoid sinus. Trace mucosal thickening floor of the right maxillary si nus. Reformatted images confirm above findings. IMPRESSION: 1. VERY SLIGHT THICKENING OF THE ANTERIOR MARGIN OF THE RIGHT TYMPANIC MEMBRANE, PROBABLY POSTINFLAMM ATORY SCARRING. CORRELATE WITH DIRECT VISUALIZATION. 2. SMALL AMOUNT OF FLUID WITHIN THE INFERIOR RIGHT MASTOID AIR CELLS. THIS FINDING IS OF QUESTIONABLE CLINICAL SIGNIFICANCE. CORRELATE FOR ANY MASTOID PAIN TO EXCLUDE MASTOIDITIS. 3. RIGHTWARD NASAL SEPTAL DEVIATION WITH MODERATE CHRONIC ETHMOID SINUS DISEASE.
== END | disposition home or self-care (01) ==
LOC: RADCTMAIN 12:47
PROVIDERS: ATTEND Otolaryngology
DX: H90.A31 Mixed conductive and sensorineural hearing loss, unilateral, right ear with restricted hearing on the contralateral side (principal); J34.2 Deviated nasal septum; J32.2 Chronic ethmoidal sinusitis
CPT/HCPCS: 70480

== ENCOUNTER → 2023-07-26 | Outpatient (CLI) | payer MEDICARE, BC ==
--- NOTE | 2023-07-30 11:04 | MR ---
EXAMINATION TYPE: MR brain and iac wo/w con DATE OF EXAM: 07/26/2023 COMPARISON: NONE HISTORY: 68-year-old male H90.A21, Rt side hearing loss TECHNIQUE: Multiplanar, multisequence images of the brain and brainstem were acquired before and aft er administration of 10.5 mL IV Gadavist. Diffusion weighted imaging was performed. Additional cone d-down sequences through the internal auditory canals and posterior cranial fossa before and after IV contrast administration. FINDINGS: Diffusion weighted images demonstrate no evidence of an acute ischemic lesion in the brain. T2/FLAIR weighted sequences show moderate to severe scattered bright signal foci throughout the subco rtical, deep, and periventricular regions of both cerebral hemispheres. Additional foci are present w ithin the bilateral basal ganglia and paramedian pan. The major intracranial flow voids are intact. There is a hypoplastic V4 segment right vertebral arter y. There is anatomic variation with persistent origin to the right [employer]. Midline structures demonstrate partially empty sella but otherwise normal morphology. The craniocerv ical junction is normal. There is mild to moderate generalized cerebral atrophy. Secondary mild prominence of the ventricular system. There is no evidence of an acute intracranial hemorrhage, infarct, mass, mass-effect or an extra-axia l fluid collection. There is no cerebellopontine angle mass. The internal auditory canals are symmetric. Brainstem and skull base abnormalities are not seen. Post contrast images demonstrate no evidence of pathologic enhancement in the posterior cranial fossa or the internal auditory canals. There is no abnormal enhancement of the labyrinths. Moderate mucosal thickening throughout the ethmoid air cells. 1 cm mucosal retention cyst right sphen oid sinus. Trace mucosal thickening maxillary sinuses. Rightward nasal septal deviation. Globes are i ntact. IMPRESSION: 1. Mild to moderate generalized cerebral atrophy. No acute intracranial abnormality or enhancing intr acranial lesions seen. 2. 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 3. Unremarkable acoustic MRI. 4. Moderate chronic ethmoid sinus disease.
== END | disposition home or self-care (01) ==
LOC: RADMRIMAIN 11:06
PROVIDERS: ATTEND Otolaryngology
DX: H90.A21 Sensorineural hearing loss, unilateral, right ear, with restricted hearing on the contralateral side (principal); G31.89 Other specified degenerative diseases of nervous system; G93.89 Other specified disorders of brain; J32.2 Chronic ethmoidal sinusitis
CPT/HCPCS: 70553; A9585